=== PATIENT | female | born 1970 | race Two or more races ===

== ENCOUNTER 2024-04-22 09:52 | Emergency (ER) | payer OTHER ==
[~2024-04-22] VITALS: Ht 177.8 cm; Wt 65.8 kg
[2024-04-22] MEDS ORDERED: 0.9 % SODIUM CHLORIDE 1,000 ML IV ONE (10:45)
[2024-04-22] MEDS ORDERED: FAMOtidine 10 MG/ML (4ML VIAL) IV PUSH ONE (10:45)
[2024-04-22] MEDS ORDERED: ONDANSETRON HCL 2 MG/ML VIAL IV ONE (10:45)
[2024-04-22 11:04] LABS: HEMATOCRIT 39.3 % (36.0-45.00); HEMOGLOBIN 13.6 g/dL (12.0-15.00); MEAN CORPUSCULAR HEMOGLOBIN 32.8 pg (27.00-32.0); MEAN CORPUSCULAR HGB CONC 34.6 g/dl (32.0-36.0); PLATELET COUNT 241 K/uL (150-450); RED BLOOD COUNT 4.13 M/uL (4.00-6.00); RED CELL DISTRIBUTION WIDTH 14.7 % (11.5-14.5)
[2024-04-22 11:22] LABS: ALBUMIN 3.1 gm/dL (3.4-5.0); BILIRUBIN TOTAL 0.22 mg/dL (0.3-1.2); CALCIUM 8.2 mg/dL (8.5-10.1); CREATININE SERUM 0.79 mg/dL (0.55-1.02); GFR 76.42; GLOBULINA 3.8 G/DL (2.4-3.5); POTASSIUM 3.42 mEq/L (3.5-5.1); TOTAL PROTEIN 6.9 gm/dL (6.4-8.2)
[2024-04-22 12:50] LABS: PH,URINE 6.5 (5.0-8.0); URINE APPEARANCE Clear; URINE BILIRRUBIN Negative (NEGATIVE); URINE BLOOD Trace; URINE COLOR Yellow; URINE GLUCOSE Negative (NEGATIVE); URINE KETONE 15 (NEGATIVE); URINE LEUKOCYTE Trace; URINE NITRATE Negative; URINE PROTEIN Trace (NEGATIVE)
[2024-04-22 12:55] LABS: URINE BACTERIA 5881.1 uL (0.0-1933); URINE RBC 61.2 uL (0.0-20.8); URINE WBC 53.8 uL (0.0-23.2)
[2024-04-22 12:56] LABS: URINE CAST 1.03 uL (0.0-1.40)
[2024-04-22] MEDS ORDERED: ZOFRAN8 MG PO (13:36)
[2024-04-22] MEDS ORDERED: PEPCID AC20 MG PO (13:36)
[2024-04-22] MEDS ORDERED: BACTRIM DS TAB1 EACH PO (13:36)
== END 2024-04-22 13:51 | disposition home or self-care (01) ==
LOC: ER 09:54
PROVIDERS: General Practice
DX: K29.60 Other gastritis without bleeding (principal); N39.0 Urinary tract infection, site not specified; Z88.8 Allergy status to other drugs, medicaments and biological substances
CPT/HCPCS: 36415; 96365; 99282; J2405; J3490